=== PATIENT | female | born 1995 | race Caucasian/White ===

== ENCOUNTER 2017-10-12 11:31 | Emergency (ER) | payer BC ==
[2017-10-12 11:54] VITALS: BP 118/77
[2017-10-12] MEDS ORDERED: Ibuprofen TAB* 600 MG PO ONE (11:58)
--- NOTE | 2017-10-12 12:00 | UC ---
Lower Extremity/Ankle HPI - HPI Summary HPI Summary: pt stubbed her left foot last pm. c/o pain to forefoot. - History of Current Complaint Chief Complaint: UCLowerExtremity Stated Complaint: LEFT FOOT INJURY Time Seen by Provider: 10/12/17 11:47 Hx Obtained From: Patient Hx Last Menstrual Period: 09/14/17 Onset/Duration: Sudden Onset Pain Intensity: 6 Aggravating Factor(s): Ambulation Alleviating Factor(s): Rest Able to Bear Weight: Yes - Risk Factors Gout Risk Factors: Negative DVT Risk Factors: Negative Septic Arthritis Risk Factor: Negative - Allergies/Home Medications Allergies/Adverse Reactions: Allergies Allergy/AdvReac Type Severity Reaction Status Date / Time cefdinir [From Omnicef] Allergy Hives Verified 10/12/17 11:50 Home Medications: Home Medications Multivitamins/Minerals TAB* [Theragran/minerals TAB*] 1 tab PO DAILY 10/12/17 [ History Confirmed 10/12/17] PMH/Surg Hx/FS Hx/Imm Hx Previously Healthy: Yes - Surgical History Surgical History: Yes Surgery Procedure, Year, and Place: [place] teeth - Family History Known Family History: Positive: None - Social History Occupation: Employed Full-time Lives: Alone Alcohol Use: Occasionally Substance Use Type: None Smoking Status (MU): Never Smoked Tobacco - Immunization History Vaccination Up to Date: Yes Review of Systems Constitutional: Negative Skin: Negative Eyes: Negative ENT: Negative Respiratory: Negative Cardiovascular: Negative Gastrointestinal: Negative Genitourinary: Negative Motor: Negative Neurovascular: Negative Musculoskeletal: Other: - Pain L forefoot Neurological: Negative Psychological: Negative Is Patient Immunocompromised?: No All Other Systems Reviewed And Are Negative: Yes Physical Exam Triage Information Reviewed: Yes Appearance: Well-Appearing Vital Signs: Initial Vital Signs Temp 98.8 F 10/12/17 11:48 Pulse 77 10/12/17 11:48 Resp 18 10/12/17 11:48 BP 118/77 10/12/17 11:48 Pulse Ox 98 10/12/17 11:48 Vital Signs Reviewed: Yes Eyes: Positive: Conjunctiva Clear ENT: Positive: Normal ENT inspection Neck: Positive: Supple, Nontender, No Lymphadenopathy Respiratory: Positive: Lungs clear, Normal breath sounds Cardiovascular: Positive: RRR, No Murmur Abdomen Description: Positive: Nontender, No Organomegaly, Soft Bowel Sounds: Positive: Present Musculoskeletal: Positive: Other: - LLE: hip, knee, ankle are atraumatic. L lateral forefoot with mild swelling, bruising and tenderness. Gross s/v/m is intact. Neurological: Positive: Alert Psychological: Positive: Age Appropriate Behavior Skin Exam: Normal Procedures - Procedure Summary Procedure Summary: GAUZE PLACED BETWEEN L 4TH/5TH TOES THEN 2 TOES SHANNON TAPED. GROSS S/V INTACT AFTER. Diagnostics - Laboratory Diagnostic Studies Completed/Ordered: WET READ XRAY=5TH TOE FX - Radiology No standard instances Radiology Interpretation Completed By: Radiologist - fracture 5th toe(see report ) Lower Extremity Course/Dx - Differential Dx/Diagnosis Provider Diagnoses: FRACTURE LEFT 5TH TOE Discharge - Sign-Out/Discharge Documenting (check all that apply): Discharge - Discharge Plan Condition: Stable Disposition: HOME Patient Education Materials: Toe Fracture (ED) Forms: *Work Release Referrals: Sonali Browning MD [Primary Care Provider] - If Needed Saturnino Vaughn MD [Medical Doctor] - As Soon As Possible Additional Instructions: WEAR POST OP SHOE UNTIL CLEARED. SHANNON TAPE 4TH AND 5TH TOES FOR COMFORT - Billing Disposition and Condition Condition: STABLE Disposition: HOME
--- NOTE | 2017-10-12 12:29 | RAD ---
Indication: Left foot injury. 3 views of left foot demonstrates a fracture through the base proximal phalanx of the fifth digit. There is slight lateral angulation. IMPRESSION: Fracture through the base of the fifth proximal phalanx.
== END 2017-10-12 12:30 | disposition home or self-care (01) ==
LOC: UCCORT 11:31
DX: S92.512A Displaced fracture of proximal phalanx of left lesser toe(s), initial encounter for closed fracture (principal); W22.8XXA Striking against or struck by other objects, initial encounter; Y92.9 Unspecified place or not applicable; Z88.3 Allergy status to other anti-infective agents
CPT/HCPCS: 99203; A9270-GY; G0463

== ENCOUNTER 2018-10-27 11:36 | Emergency (ER) | payer BC ==
[2018-10-27 11:58] VITALS: BP 120/76
--- NOTE | 2018-10-27 12:39 | ED ---
Throat Pain/Nasal Congestion - HPI Summary HPI Summary: 23 yr old female with the complaint of intermittent sore throat for a little over a week, and also fatigue. The patient states she had some nausea and vomiting in mid September. She felt tired and fatigued. The vomiting/GI symptoms resolved per the patient but then over the past week or so her throat has been hurting. She has no fever. She has no coughing,no runny nose. - History of Current Complaint Chief Complaint: UCRespiratory Time Seen by Provider: 10/27/18 12:00 - Allergies/Home Medications Allergies/Adverse Reactions: Allergies Allergy/AdvReac Type Severity Reaction Status Date / Time cefdinir [From Omnicef] Allergy Hives Verified 10/27/18 11:54 PMH/Surg Hx/FS Hx/Imm Hx - Surgical History Surgery Procedure, Year, and Place: [place] teeth Infectious Disease History: No Infectious Disease History: Denies: Traveled Outside the [place] in Last 30 Days - Family History Known Family History: Positive: None - Social History Occupation: Employed Full-time Alcohol Use: Weekly Alcohol Amount: 2-3 drinks/week Substance Use Type: Reports: None Smoking Status (MU): Never Smoked Tobacco Review of Systems Positive: Fatigue Positive: Sore Throat All Other Systems Reviewed And Are Negative: Yes Physical Exam Triage Information Reviewed: Yes Vital Signs On Initial Exam: Initial Vitals Temp Pulse Resp BP Pulse Ox 97.9 F 62 16 120/76 100 10/27/18 11:54 10/27/18 11:54 10/27/18 11:54 10/27/18 11:54 10/27/18 11:54 Vital Signs Reviewed: Yes Appearance: Positive: Well-Appearing, No Pain Distress Skin: Positive: Warm, Skin Color Reflects Adequate Perfusion Head/Face: Positive: Normal Head/Face Inspection Eyes: Positive: EOMI ENT: Positive: Pharyngeal erythema, TMs normal. Negative: Nasal congestion, Nasal drainage Neck: Positive: Nontender Respiratory/Lung Sounds: Positive: Clear to Auscultation, Breath Sounds Present Cardiovascular: Positive: RRR. Negative: Murmur Abdomen Description: Negative: Distended Musculoskeletal: Positive: Strength/ROM Intact Neurological: Positive: Sensory/Motor Intact, Alert, Oriented to Person Place, Time, CN Intact II-III, Normal Gait, Speech Normal Psychiatric: Positive: Normal Diagnostics - Vital Signs Vital Signs Temp Pulse Resp BP Pulse Ox 10/27/18 11:54 97.9 F 62 16 120/76 100 - Laboratory Lab Results: Lab Results 10/27/18 Range/Units 12:05 Group A Strep Rapid Negative (Negative) Lab Statement: Any lab studies that have been ordered have been reviewed, and results considered in the medical decision making process. EENT Course/Dx - Course Course Of Treatment: 23 yr old female with sore throat. DC home in stable condition Rapid strep negative. Her monospot is drawn and pending. - Diagnoses Provider Diagnoses: Pharyngitis Discharge - Sign-Out/Discharge Documenting (check all that apply): Patient Departure All imaging exams completed and their final reports reviewed: No Studies - Discharge Plan Condition: Good Disposition: HOME Patient Education Materials: Pharyngitis (ED) Referrals: Sonali Browning MD [Primary Care Provider] - 2 Days - Billing Disposition and Condition Condition: GOOD Disposition: Home
== END 2018-10-27 12:55 | disposition home or self-care (01) ==
LOC: UCCORT 11:36
DX: J02.9 Acute pharyngitis, unspecified (principal); R53.83 Other fatigue; Z88.8 Allergy status to other drugs, medicaments and biological substances
CPT/HCPCS: 36415; 86308; 87651; 99211; G0463

== ENCOUNTER 2019-04-30 15:16 | Emergency (ER) | payer BC ==
[2019-04-30 15:32] VITALS: BP 98/64
--- NOTE | 2019-04-30 16:24 | UC ---
Ear Complaint HPI - HPI Summary HPI Summary: 24 y/o female presents to the urgent care c/o b/L intermittent ear pain for the past 2.5 weeks. Pt reports She developed an cold about 1 month w/ a lot sinus congestion and drainage, symptoms resolved, but she was left w/ B/L ear pressure and discomfort. Last weekend she like a stomach bug over the weekend, and that has cleared up. However her ear pain has worsen w/ pressure, decrease hearing and mild dizziness at times. Pain is 3/10 now, but she took Ibuprofen about 2 hrs ago. Pt denies fever, SOB, GARCÍA, chest pain, abdominal pain, N/V/D. - History of Current Complaint Chief Complaint: UCEar Stated Complaint: BILAT EAR PAIN Time Seen by Provider: 04/30/19 16:23 Hx Obtained From: Patient Hx Last Menstrual Period: 10/26/18 Onset/Duration: Gradual Onset, Lasting Weeks - 2.5 weeks, Still Present, Worse Since - 3 days ago Severity Initially: Mild Severity Currently: Moderate Pain Intensity: 3 Pain Scale Used: 0-10 Numeric Aggravating Factors: Nothing Alleviating Factors: OTC Meds Associated Signs/Symptoms: Positive: URI Symptoms. Negative: Hearing Loss - Allergies/Home Medications Allergies/Adverse Reactions: Allergies Allergy/AdvReac Type Severity Reaction Status Date / Time cefdinir [From Omnicef] Allergy Hives Verified 04/30/19 15:33 PMH/Surg Hx/FS Hx/Imm Hx Previously Healthy: Yes - Pt denies PMHX - Surgical History Surgical History: Yes Surgery Procedure, Year, and Place: [place] teeth - Family History Known Family History: Positive: Hypertension - Social History Occupation: Employed Full-time Lives: With Family Alcohol Use: Occasionally Alcohol Amount: 2-3 drinks/week Substance Use Type: None Smoking Status (MU): Never Smoked Tobacco - Immunization History Vaccination Up to Date: Yes Review of Systems All Other Systems Reviewed And Are Negative: Yes Constitutional: Positive: Negative Skin: Positive: Negative Eyes: Positive: Negative ENT: Positive: Ear Ache - B/l ear pain, Nasal Discharge - mild clear, Sinus Congestion Respiratory: Positive: Negative Cardiovascular: Positive: Negative Gastrointestinal: Positive: Negative Genitourinary: Positive: Negative Motor: Positive: Negative Neurovascular: Positive: Negative Musculoskeletal: Positive: Negative Neurological: Positive: Negative Psychological: Positive: Negative Is Patient Immunocompromised?: No Physical Exam - Summary Physical Exam Summary: Vital signs: reviewed General: well developed, well nourished female sitting in the examining table w/ o any apparent distress Skin: [place], warm and dry, no evidence of atopic dermatitis, psoriasis, seborrhea. HEENT: -Head: atraumatic, non tender; no scalp dermatitis. -Eyes: sclera and conjunctiva clear, PERRLA, EOMI -Ears: no pre- or postauricular lymphadenopathy or erythema; B/L external ear canal clears, Left TM injected w/ erythema and yellowish drainage, RT TM WNL.with erythema and yellowish purulent discharge, No perforation. -Nose/Face: erythematous and edematous nasal mucosa with clear rhinorrhea, no frontal or maxillary sinus tender to palpation. -Mouth/Throat: Mucous membrane moist, posterior pharynx clear, no erythema or exudates. Neck: supple, FROM, nontender, no lymphadenopathy, no meningismus. Chest: Clear to auscultation, normal breath sounds Abd: soft, Bowel sounds active, Nontender. Back: no spinal or CVAT Neuro: A&O x4, GCS 15, no focal neuro deficits, normal behavior for age. Triage Information Reviewed: Yes Vital Signs: Initial Vital Signs Temp 98.4 F 04/30/19 15:28 Pulse 58 04/30/19 15:28 Resp 18 04/30/19 15:28 BP 98/64 04/30/19 15:28 Pulse Ox 99 04/30/19 15:28 Ear Complaint Course/Dx - Course Course Of Treatment: 24 y/o female presents to the urgent care c/o b/L intermittent ear pain for the past 2.5 weeks. Pt reports She developed an cold about 1 month w/ a lot sinus congestion and drainage, symptoms resolved, but she was left w/ B/L ear pressure and discomfort. Last weekend she like a stomach bug over the weekend, and that has cleared up. However her ear pain has worsen w/ pressure, decrease hearing and mild dizziness at times. Pain is 3/10 now, but she took Ibuprofen about 2 hrs ago. Pt denies fever, SOB, GARCÍA, chest pain, abdominal pain, N/V/D. Hx obtained. Pt w/ left otitis media on examination. Pt Rx Amoxicillin PO. Advised to continue taking Ibuprofen PO for pain . if symptoms do not improve or worsen to return to the urgent care or f/u with PCP in 3 days for further management. D/c instructions explained. PT understood and agreed with plan of care. - Differential Dx/Diagnosis Differential Diagnosis/HQI/PQRI: Cerumen Impaction, Otitis Externa, Otitis Media , URI Provider Diagnosis: Left otitis media Discharge ED - Sign-Out/Discharge Documenting (check all that apply): Patient Departure - d/c home All imaging exams completed and their final reports reviewed: No Studies - Discharge Plan Condition: Stable Disposition: HOME Prescriptions: Amoxicillin PO (*) [Amoxicillin 500 MG CAP*] 500 mg PO Q12H #14 cap Patient Education Materials: Ear Infection (ED) Referrals: Sonali Browning MD [Primary Care Provider] - 3 Days Additional Instructions: 1- Please take the full course of the antibiotic to avoid resistance.Take yogurts w/ probiotics or Culturelle to protect your GI system 2-Please take ibuprofen PO q6-8hrs prn as instructed after meals to alleviate pain and swelling. Increase fluid intake, eat well, rest and avoid strenuous exercise 3-If symptoms do not improve or worsen please return to the urgent care or f/u with your PCP in 3 days for further evaluation and treatment. - Billing Disposition and Condition Condition: STABLE Disposition: Home
== END 2019-04-30 16:42 | disposition home or self-care (01) ==
LOC: UCCORT 15:16
DX: H66.92 Otitis media, unspecified, left ear (principal); H92.01 Otalgia, right ear; R23.8 Other skin changes; Z88.1 Allergy status to other antibiotic agents
CPT/HCPCS: 99212; G0463